=== PATIENT | male | born 1965 | race Caucasian/White ===

== ENCOUNTER 2019-04-24 19:15 | Emergency (ER) | payer MEDICARE ==
--- NOTE | 2019-04-24 20:50 | RAD ---
RIGHT KNEE FOUR VIEW 04/24/19 HISTORY: Injury. Fall. COMPARISON: None. 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 There is osseous connection between the imbricated margins of the proximal tibia and fibula through the syndesmotic membrane. Prepatellar soft tissue swelling. Moderate vascular calcifications. IMPRESSION: Prepatellar soft tissue swelling suggesting contusion/prepatellar bursitis. POS: HOME
== END 2019-04-24 21:21 | disposition home or self-care (01) ==
LOC: ERS 19:15
DX: S80.01XA Contusion of right knee, initial encounter (principal); E78.00 Pure hypercholesterolemia, unspecified; F17.210 Nicotine dependence, cigarettes, uncomplicated; Z79.899 Other long term (current) drug therapy; Z79.82 Long term (current) use of aspirin; W19.XXXA Unspecified fall, initial encounter